=== PATIENT | male | born 1985 | race Caucasian/White ===

== ENCOUNTER 2019-05-28 04:15 | Inpatient (IN) | payer BC ==
[~2019-05-28] VITALS: Ht 193 cm; Wt 90.7 kg
[2019-05-28 04:20] VITALS: BP_SYST 129
--- NOTE | 2019-05-28 04:21 | NUR ---
Patient to ER bed 4 to gown for evaluation. Side rails up.
--- NOTE | 2019-05-28 04:25 | NUR ---
Pt came to the ED for epigastric pain 05/21 which started at 0000 this morning. Reports that he ate a burrito with salsa for dinner last night. Pt took tums with no relief. Upon observation, pt cannot sit still due to the pain. Reports that he had a similiar episode a few weeks ago and was able to "walk around to get rid of the pain."
--- NOTE | 2019-05-28 05:25 | NUR ---
ER at bedside examining patient.
[2019-05-28 05:49] LABS: BASOPHILS # (AUTO) 0.1 K/uL (0.0-0.2); BASOPHILS % (AUTO) 0.7 % (0.0-2.0); EOSINOPHILS # (AUTO) 0.1 K/uL (0.0-0.4); EOSINOPHILS % (AUTO) 1.6 % (0.0-4.0); HEMOGLOBIN 15.1 g/dL (14.0-18.0); LYMPHOCYTES # (AUTO) 1.9 K/uL (1.0-5.5); LYMPHOCYTES % (AUTO) 21.4 % (20.5-51.5); MEAN CORPUSCULAR HEMOGLOBIN 30 pg (27-31); MEAN CORPUSCULAR HGB CONC 34 % (32-36); MEAN CORPUSCULAR VOLUME 86 fL (79.0-98.0); MONOCYTES # (AUTO) 0.7 K/uL (0.0-1.0); MONOCYTES % (AUTO) 7.7 % (1.7-9.3); NEUTROPHILS % (AUTO) 68.6 % (40.0-70.0); PLATELET COUNT (AUTO) 290 K/uL (130-430); RED CELL DISTRIBUTION WIDTH 12.7 % (9.0-15.0); WHITE BLOOD COUNT (AUTO) 8.7 K/uL (4.8-10.8)
[2019-05-28 06:03] LABS: ANION GAP 8 (5-15); CALCIUM 9.9 mg/dL (8.4-11.0); CHLORIDE 102 mmol/L (98-107); CREATININE 1.05 mg/dL (0.55-1.30); GLUCOSE 110 mg/dL (70-99); POTASSIUM 3.6 mmol/L (3.5-5.1); SODIUM SERUM 137 mmol/L (136-145); UREA NITROGEN, BLOOD 12 mg/dL (8-21)
--- NOTE | 2019-05-28 06:10 | NUR ---
Pt VSS no s/s of acute distress, however, N/V Pt feels it's still as severe as before. Dr. Broderick aware
[2019-05-28 06:12] LABS: ALANINE AMINOTRANSFERASE 60 U/L (12-78); ALBUMIN 4.1 g/dL (3.4-4.8); AMYLASE 41 U/L (0-100); ASPARTATE AMINOTRANSFERASE 25 U/L (10-37); GFR AFRICAN AMERICAN 105 mL/min (>90); LIPASE 129 U/L (73-393); TOTAL BILIRUBIN 0.5 mg/dL (0.0-1.0)
[2019-05-28] MEDS ORDERED: ONDANSETRON HCL 4 MG/2 ML VIAL IVP ONE (06:30)
[2019-05-28] MEDS ORDERED: NACL 0.9% 1,000 ML IV ONE (06:30)
[2019-05-28] MEDS ORDERED: MORPHINE 4 MG/ML INJ. SYRINGE ONE (06:42)
[2019-05-28] MEDS ORDERED: MORPHINE 4 MG/ML INJ. SYRINGE IVP ONE (06:45)
--- NOTE | 2019-05-28 06:56 | NUR ---
Pt resting on gurney rails up with family member bedside. MS for pain well tolerated
--- NOTE | 2019-05-28 07:15 | NUR ---
Report received from Brenda HENDERSON. Pt is still c/o 05/[address] Broderick notified. Addendum: 05/28/[address] Ramirez notified
[2019-05-28] MEDS ORDERED: MAG HYDROX/AL HYDROX/SIMETH 30 ML, DICYCLOMINE HCL 20 MG, LIDOCAINE VISCOUS 2% 15ML (PO... PO ONE ×3 (07:30)
[2019-05-28] MEDS ORDERED: ONDANSETRON HCL 4 MG/2 ML VIAL IVP PRN (08:30)
--- NOTE | 2019-05-28 08:33 | NUR ---
admit orders received from Dr. Chapman. Currently waiting for a tele bed.
[2019-05-28 08:34] LABS: BILIRUBIN,URINE NEGATIVE (NEGATIVE); BLOOD, URINE NEGATIVE (NEGATIVE); CLARITY/URINE CLEAR (CLEAR); COLOR,URINE YELLOW (YELLOW); GLUCOSE,URINE NEGATIVE (NEGATIVE); KETONES,URINE 1+ (NEGATIVE); LEUKOCYTE ESTERASE ,URINE NEGATIVE (NEGATIVE); NITRITE, URINE NEGATIVE (NEGATIVE); PH,URINE 8.5 (5.0-8.0); PROTEIN URINE NEGATIVE (NEGATIVE); UROBILINOGEN,URINE 0.2 (0.2-1.0)
[2019-05-28] MEDS ORDERED: PANTOPRAZOLE SODIUM 40 MG/VIAL (PROTONIX) IVP ONE ×2 (08:45→10:15)
[2019-05-28] MEDS ORDERED: MORPHINE 2 MG/ML INJ. SYRINGE IVP ONE (08:45)
[2019-05-28 09:10] VITALS: BP_SYST 141
--- NOTE | 2019-05-28 09:10 | NUR ---
ADMISSION NOTE Received patient from ER via clotilde, received report from ELEANOR HENDERSON. Patient admitted with diagnosis of RULE OUT CHOLECYSTITIS. Patient oriented to hospital routine, call light, toileting and safety-patient verbalized understanding.
--- NOTE | 2019-05-28 09:15 | NUR ---
Patient will be admitted to care of Dr. Chapman. Admitted to tele unit. Will go to room 130-a. Belongings list completed. Summary report printed. Bedside report given to Tayo HENDERSON
[2019-05-28] MEDS: HYDROmorphone 1 MG INJ. 1 MG/ML AMPUL IVP PRN ×2 (09:52→15:00)
[2019-05-28] MEDS ORDERED: ACETAMINOPHEN 650 MG SUPP.RECT RC PRN (10:00)
--- NOTE | 2019-05-28 10:17 | NUR ---
Opening note patient is A/Ox4, no SOB. Patient kept NPO at this time. Complaining of abdominal pain. Medication given as ordered. no adverse side effects noted. Oriented patient to the unit. Patient verbalized understanding. On safety and aspiration precautions, HOB kept elevated, bed alarm on, 3 side rails up, call light within reach. patient in stable condition. Will continue to monitor.
--- NOTE | 2019-05-28 11:29 | NUR ---
GI consult called: for Dr. Charo Burrell, regarding abdominal pain, ordered by Dr. Chapman, spoke with Alana.
[2019-05-28] MEDS: KCL 20 mEq in NS 1000 mL 1,000 ML IV SCH (11:30)
--- NOTE | 2019-05-28 12:17 | NUR ---
Rounds Patient resting in bed at this time, No SOB. IV patent, intact, and infusing fluids as ordered. No adverse side effects. No infiltration noted. No nausea, no vomiting noted. No complaints of pain at this time.
[2019-05-28 12:50] VITALS: BP_SYST 102
--- NOTE | 2019-05-28 13:53 | NUR ---
consent for HIDA Patient NPO at this time, explained to patient the need to remain NPO for test. patient verbalized understanding. No nausea, no vomiting. patient in stable condition.
--- NOTE | 2019-05-28 15:30 | NUR ---
Rounds/ Pain medication Nuclear med nurse Jun stated, patient may have pain medication no later than 1600. No pain medication to be given 4-6 hours prior to HIDA scan. Patient verbalized understanding.
[2019-05-28 16:45] VITALS: BP_SYST 109
--- NOTE | 2019-05-28 18:23 | NUR ---
Closing note patient is A/Ox4, no SOB. Patient kept NPO at this time. Iv site patent, intact, and infusing as ordered. no adverse side effects noted. No infiltration noted. On safety and aspiration precautions, HOB kept elevated, bed alarm on, 3 side rails up, call light within reach. patient in stable condition. All needs met.
[2019-05-28 20:00] VITALS: BP_SYST 126
--- NOTE | 2019-05-28 21:15 | NUR ---
Patient goes to [facility] scan, cardiac monitor disconnected. Patient vitals stable, patient states pain of 0/10.
[2019-05-29] VITALS: BP_SYST 109
--- NOTE | 2019-05-29 00:05 | NUR ---
Patient returns from HIDA scan, no signs of acute respiratory distress or pain. Patient states pain of 0/10. Patient performing oral care now. IVF hung, dressings c/d/i. Vitals stable. Patient refuses bed alarm after patient education on risks and benefits provided and patient verbalizes understanding. Will continue to monitor.
[2019-05-29] MEDS: KCL 20 mEq in NS 1000 mL 1,000 ML IV SCH ×3 (00:08→08:43)
--- NOTE | 2019-05-29 02:10 | NUR ---
Patient resting with eye mask on, no signs of acute respiratory distress observed. Safety precautions in place. Will continue to monitor.
--- NOTE | 2019-05-29 03:35 | NUR ---
SPOKE TO DR. MARTIN, relayed HIDA preliminary findings, Patient will remain NPO and will add Dr. Pinzon as consult.
--- NOTE | 2019-05-29 04:12 | NUR ---
Patient is resting, no signs of pain or SOB observed. Will continue to monitor.
--- NOTE | 2019-05-29 06:35 | NUR ---
CONSULTATION PAGED/CALLED Reason for Consultation: CHOLECYSTITIS Person Who was Notified: BILLIE Consulting Physician: [place] Man Specialty: GENERAL SURGERY Ordering Physician:
--- NOTE | 2019-05-29 07:01 | NUR ---
CLOSING NOTES Patient is resting, with eye mask. No signs of acute respiratory distress or pain observed. IVF running, dressings c/d/i. Call light within reach, bed at lowest position. Bed alarm refused after patient education. All needs met throughout shift. Will endorse care to oncoming shift.
--- NOTE | 2019-05-29 07:12 | NUR ---
SPOKE DR. SOSA AND RELAYED PRELIMINARY HIDA RESULTS. ORDERS LAPROSCOPIC VS/OPEN CHOLECYSTECTOMY. WILL CALL OR AND THINKS IT WILL BE IN THE [place] AT [place]. WILL CONTINUE PATIENT TO BE NPO.
--- NOTE | 2019-05-29 07:55 | NUR ---
INITIAL NOTE RECEIVED PT IN BED, NO S/S OF DISTRESS OR SOB NOTED, PT HAS NO C/O PAIN AT THIS TIME, PT IN STABLE CONDITION. PT AAOX4, VERBAL. IV CATHETER PATENT, NO SIGNS OF INFECTION OR INFILTRATION NOTED, RUNNING IV FLUIDS ORDERED. BED AT LOWEST POSITION, CALL LIGHT WITHIN REACH, WILL CONTINUE TO MONITOR PT FOR ANY CHANGES, FALL AND SAFETY PRECAUTIONS IN PLACE. PT NPO FOR SURGERY TODAY.
[2019-05-29 08:19] LABS: INR 1.1 (0.80-1.20); PROTHROMBIN TIME 10.8 SECS (9.5-12.5)
[2019-05-29 08:40] VITALS: BP_SYST 111
[2019-05-29] MEDS: PANTOPRAZOLE SODIUM 40 MG/VIAL (PROTONIX) IVP SCH (08:42)
--- NOTE | 2019-05-29 10:13 | NUR ---
ROUNDS PT IN BED, NO S/S OF DISTRESS OR SOB NOTED. PT HAS NO C/O PAIN AT THIS TIME, PT IN STABLE CONDITION, PT TALKIGN TO VISITOR AT BEDSIDE, WILL CONTINUE TO MONITOR PT FOR ANY CHANGES.
[2019-05-29 12:00] VITALS: BP_SYST 127
--- NOTE | 2019-05-29 12:26 | NUR ---
ROUNDS PT IN BED, NO S/S OF DISTRESS OR SOB NOTED. PT HAS NO C/O PAIN AT THIS TIME, PT IN STABLE CONDITION, VISITOR AT BEDSIDE, WILL CONTINUE TO MONITOR PT FOR ANY CHANGES.
--- NOTE | 2019-05-29 14:07 | NUR ---
ROUNDS PT IN BED, NO S/S OF DISTRESS OR SOB NOTED. PT HAS NO C/O PAIN AT THIS TIME, PT IN STABLE CONDITION, VISITOR AT BEDSIDE, WILL CONTINUE TO MONITOR PT FOR ANY CHANGES. PT RECEIVED HIS CHG BATH AT 1300.
--- NOTE | 2019-05-29 16:04 | NUR ---
OR PT LEFT TO OR, PT IN STABLE CONDITION, NO S/S OF DISTRESS OR SOB NOTED, PT HAS NO C/O PAIN AT THIS TIME. IV CATHETER PATENT, SALINE LOCK.
[2019-05-29 16:14] VITALS: BP_SYST 124
[2019-05-29] MEDS ORDERED: PROPOFOL 200MG/ 20ML VIAL (DIPRIVAN) IV ONE (16:15)
[2019-05-29] MEDS ORDERED: LR 1,000 ML IV.SOLN IV ONE (16:15)
[2019-05-29] MEDS ORDERED: SEVOFLURANE 15 MIN GAS INH ONE (16:15)
[2019-05-29] MEDS ORDERED: CEFAZOLIN 2 GM IVPB PREMIX 50 ML IV ONE (16:15)
[2019-05-29] MEDS ORDERED: ONDANSETRON HCL 4 MG/2 ML VIAL IVP ONE (16:15)
[2019-05-29] MEDS ORDERED: MIDAZOLAM HCL 5 MG/5 ML VIAL IVP ONE (16:15)
[2019-05-29] MEDS ORDERED: fentaNYL CITRATE 250 MCG/5 ML AMP IV ONE (16:15)
[2019-05-29] MEDS ORDERED: ROCURONIUM BROMIDE 10 MG/ML (ZEMURON) IV ONE (16:15)
[2019-05-29] MEDS ORDERED: NS IRRIG SOLN 1000 ML IR ONE (16:15)
[2019-05-29 16:30] VITALS: BP_SYST 124
[2019-05-29] MEDS ORDERED: LR 1,000 ML IV SCH (16:47)
[2019-05-29] MEDS ORDERED: MORPHINE 4 MG/ML INJ. SYRINGE IVP PRN ×3 (17:00)
[2019-05-29] MEDS ORDERED: METOCLOPRAMIDE HCL 10 MG/2 ML VIAL IVP PRN (17:00)
[2019-05-29] MEDS: HYDROmorphone 1 MG INJ. 1 MG/ML AMPUL IVP PRN ×3 (17:40→22:38)
[2019-05-29] MEDS ORDERED: ACETAMINOPHEN 325 MG TABLET PO PRN (17:45)
[2019-05-29] MEDS ORDERED: HYDROcodone/ACETAMIN 5-325 MG TAB (NORCO/ VICODIN) PO PRN (17:45)
[2019-05-29] MEDS ORDERED: ONDANSETRON HCL 4 MG/2 ML VIAL IVP PRN (17:45)
[2019-05-29] MEDS ORDERED: HYDROmorphone 1 MG INJ. 1 MG/ML AMPUL ONE ×2 (17:49→18:07)
--- NOTE | 2019-05-29 18:44 | NUR ---
BACK FROM OR PT BACK FROM OR, PT AAOX4, VERBAL, IV CATHETER PATENT, NO SIGNS OF INFECTION OR INFILTRATION NOTED, RUNNING IV FLUIDS ORDERED. PT HAS 4 ABD INCISIONS WITH BANDAGES, NOTED OLD BLOOD ON THEM, NO ACTIVE BLEEDING. EDUCATED PT ON USE OF INCENTIVE SPIROMETER, PT TO USE 10 TIMES AN HOUR WHILE AWAKE, PT VERBALIZED UNDERSTANDING, PT AT 3000ML. BED AT LOWEST POSITION, CALL LIGHT WITHIN REACH, WILL ENDORSE CARE OF PT TO INCOMING NURSE. FALL AND SAFETY PRECAUTIONS IN PLACE.
--- NOTE | 2019-05-29 19:25 | NUR ---
Opening Notes Received patient in bed resting aaox4 and able to verbalize his needs. is at the bedside cooperating and participating in care. Patient states no pain or sob. No Nausea or vomiting. Bed alarm is active with scd's in place. Bed low and locked. IV on the Left ac 20g intact clean and dry. No s/s of infiltration or infection. Oriented the patient to the room and use of the call light. Will monitor on rounds for any change in condition.
[2019-05-29 20:00] VITALS: BP_SYST 130
[2019-05-29] MEDS: D5/0.45 NS 1,000 ML IV SCH (20:41)
[2019-05-29] MEDS ORDERED: CEFAZOLIN 2 GM IVPB PREMIX 100 ML IV ONE (21:26)
[2019-05-29] MEDS: CEFAZOLIN 2 GM IVPB PREMIX 50 ML IV SCH (21:28)
--- NOTE | 2019-05-29 22:45 | NUR ---
Patient has pain of 8/10 at the abdomen. medicated with dilaudid 1mg. Tolerated well with immediate relief. No nausea medication requested. Patient was re-educated on side effects of the medication with verbalized understanding. resting in bed with no respiratory distress. Bed alarm and scd's off per patient request. Education provided on risk and benefits of its use. Will monitor the patient on rounds.
[2019-05-30 00:12] VITALS: BP_SYST 126
--- NOTE | 2019-05-30 00:17 | NUR ---
Patient tolerated pain medication well with immediate relief. No respiratory distress. Patient resting in bed. Call light within reach.
--- NOTE | 2019-05-30 02:18 | NUR ---
Patient sleeping comfortably in bed. Will cont to monitor on rounds.
[2019-05-30] MEDS: HYDROmorphone 1 MG INJ. 1 MG/ML AMPUL IVP PRN ×2 (03:05→06:58)
--- NOTE | 2019-05-30 04:27 | NUR ---
Administered IV Dilaudid for pain with immediate relief. No adverse effects. Patient wants to sleep. Call light within reach. and will monitor on rounds.
[2019-05-30] MEDS: D5/0.45 NS 1,000 ML IV SCH (05:27)
[2019-05-30] MEDS: CEFAZOLIN 2 GM IVPB PREMIX 50 ML IV SCH (05:27)
--- NOTE | 2019-05-30 06:12 | NUR ---
CLosing Notes Patient in bed resting. No pain or respiratory distress. Repositioned q2h. IV intact clean and dry and infusing fluids. Administered NORCO 5/325 for moderate pain. Tolerated well. No nausea or vomiting. Patient is able to ambulate to the bathroom with a steady gait. All needs have been met. Will endorse care to oncoming shift.
[2019-05-30 07:07] LABS: BASOPHILS % (AUTO) 0.4 % (0.0-2.0); EOSINOPHILS # (AUTO) 0.1 K/uL (0.0-0.4); EOSINOPHILS % (AUTO) 1.4 % (0.0-4.0); HEMATOCRIT 42.8 % (36-54); HEMOGLOBIN 14.9 g/dL (14.0-18.0); LYMPHOCYTES # (AUTO) 1.6 K/uL (1.0-5.5); LYMPHOCYTES % (AUTO) 23.1 % (20.5-51.5); MEAN CORPUSCULAR HEMOGLOBIN 30 pg (27-31); MEAN CORPUSCULAR HGB CONC 35 % (32-36); MEAN CORPUSCULAR VOLUME 87 fL (79.0-98.0); MONOCYTES # (AUTO) 0.6 K/uL (0.0-1.0); MONOCYTES % (AUTO) 8.8 % (1.7-9.3); NEUTROPHILS # (AUTO) 4.6 K/uL (1.8-7.7); NEUTROPHILS % (AUTO) 66.3 % (40.0-70.0); PLATELET COUNT (AUTO) 249 K/uL (130-430); RED BLOOD CELL COUNT(AUTO) 4.91 MIL/uL (4.2-6.2); RED CELL DISTRIBUTION WIDTH 12.5 % (9.0-15.0)
--- NOTE | 2019-05-30 07:30 | NUR ---
AM rounds: Oriented x4. Pain is 1/10. Abdominal incisions x4 with band aids. No bleeding noted. Encouraged to start ambulating, per patient will do when gets here. IV fluids of D5 1/2 NS at 100 cc/hr on the left AC gauge 20, intact, patent. Call light within reach.
[2019-05-30 07:32] LABS: ALBUMIN 3.4 g/dL (3.4-4.8); CALCIUM 8.2 mg/dL (8.4-11.0); CREATININE 0.93 mg/dL (0.55-1.30); TOTAL BILIRUBIN 0.7 mg/dL (0.0-1.0)
[2019-05-30 07:43] VITALS: BP_SYST 108
[2019-05-30] MEDS: PANTOPRAZOLE SODIUM 40 MG/VIAL (PROTONIX) IVP SCH (09:18)
--- NOTE | 2019-05-30 09:34 | NUR ---
ROUNDS: Diet is advanced to full liquid. Encouraged patient to ambulate. Uses incentive spirometer at 2500 level as instructed.
[2019-05-30 10:10] VITALS: BP_SYST 108
--- NOTE | 2019-05-30 10:25 | NUR ---
PAGED PAGED DUARTE HAYWARD AT [phone] SPOKE WITH KAMRAN.
--- NOTE | 2019-05-30 10:33 | NUR ---
Surgeon rounds: Seen by Dr. Pinzon. Cleared patient to be discharged home . Spoke with Dr. Chapman, Dr. Kidd is covering today. Paged Dr. Kidd, awaiting for call back.
[2019-05-30] MEDS ORDERED: HYDR-4272 PO (10:58)
[2019-05-30] MEDS ORDERED: DOCU-144 PO (10:58)
[2019-05-30] MEDS ORDERED: IBUP-1971 PO (10:59)
--- NOTE | 2019-05-30 11:50 | NUR ---
D/C Patient Patient given medication reconciliation form and D/C instructions. Exit Care provided. Patient verbalized understanding. MD discussed with patient the results and treatment provided. Ambulatory with steady gait for discharge to home. Patient in stable condition, ID band removed. IV catheter removed, intact and dressing applied, no active bleeding. Rx of [place], Colace, Motrin given. Patient educated on pain management, diet and follow up with surgeon and pcp. All belongings sent with patient.
== END 2019-05-30 11:50 | disposition home or self-care (01) | DRG 418 ==
LOC: SED 04:15 → STU 08:25
PROVIDERS: ADMIT Internal Medicine; ATTEND Internal Medicine
PROC: 0FT44ZZ Resection of Gallbladder, Percutaneous Endoscopic Approach (ICD-10-PCS; principal; 2019-05-29 16:20)
DX: K80.00 Calculus of gallbladder with acute cholecystitis without obstruction (principal); K82.1 Hydrops of gallbladder; Z72.0 Tobacco use; Z79.899 Other long term (current) drug therapy
CPT/HCPCS: 36415; 76700-TC; 78226; 80053; 81003; 82150-TC; 83690-TC; 84484; 85025; 85610-TC; 85730-TC; 86886; 86900; 86901; 87081; 88304; 93005; 96361; 96374; 96375; 99285; A9537; C1727; C9113; G0378; J0690; J1170; J2001; J2250; J2270; J2405; J2704; J3010; J3480; J7120